=== PATIENT | male | born 1960 | race Caucasian/White ===

== ENCOUNTER 2019-07-11 16:53 | Observation (INO) ==
[2019-07-11] MEDS ORDERED: 0.9 % Sodium Chloride 1,000 ML IVC STA (17:07)
[2019-07-11] MEDS ORDERED: Ipratropium/Albuterol Neb 3 ML IH STA (17:07)
[2019-07-11] MEDS ORDERED: 0.9 % Sodium Chloride 1,000 ML IVC ONE (17:11)
[2019-07-11 17:32] LABS: Basophils % 0.2 %; Hematocrit 46.2 % (37.5-50.1); Hemoglobin 15.3 g/dL (12.9-16.9); Immature Granulocytes % 0.3 % (0-4); Lymphocytes # 0.8 K/mcL (0.6-4.6); Lymphocytes % 7.4 %; Mean Corpuscular HGB Conc 33.1 g/dL (31.6-35.5); Mean Corpuscular Volume 93.5 fL (83.0-100.0); Mean Platelet Volume 9.9 fL (9.4-12.4); Monocytes # 1.2 K/mcL (0.0-1.3); Monocytes % 11.4 %; Neutrophils # 8.3 K/mcL (1.6-8.9); Platelet Count 154 K/mcL (140-400); Red Blood Count 4.94 M/mcL (4.19-5.50); Segmented Neutrophils % 80.7 %; White Blood Count 10.3 K/mcL (4.3-11.1)
[2019-07-11 17:38] LABS: Bilirubin,Urine Small (Negative); Blood,Urine Small (Negative); Clarity,Urine Clear (Clear); Color,Urine Dark Yellow (Yellow); Glucose,Urine (UA) Normal (Normal); Ketones,Urine Negative (Negative); Leukocyte Esterase,Urine Negative (Negative); Nitrite,Urine Negative (Negative); Protein,Urine >=300 mg/dL (Neg-Trace); Specific Gravity,Urine 1.028 (1.010-1.025); Urobilinogen,Urine Normal (Normal)
[2019-07-11 17:51] LABS: Bacteria,Urine None Seen per hpf (None-Few); Hyaline Casts,Urine Moderate per lpf (None-Few); RBC,Urine 15-30 per hpf (0-3); Squamous Epithelial Cell,Urine Many per lpf (None-Few); WBC,Urine 0-3 per hpf (0-3)
[2019-07-11 17:58] LABS: BUN/Creatinine Ratio 16 (6-26); Blood Urea Nitrogen 20 mg/dL (6-20); Calcium 9.2 mg/dL (8.6-10.3); Carbon Dioxide 33 mEq/L (23-29); Chloride 92 mEq/L (98-107); Glucose 132 mg/dL (70-105); Osmolality,Calculated 284 (280-300); Potassium 3.9 mEq/L (3.5-5.1); Sodium 135 mEq/L (136-145); Troponin I 0.03 ng/mL (< 0.04); eGFR For African Americans > 60 (> 60); eGFR For Non-African Americans 57 (> 60)
[2019-07-11] MEDS ORDERED: predniSONE 20 MG TABLET PO ONE (18:58)
[2019-07-11] MEDS ORDERED: Albuterol 2.5 MG/3 ML NEBULIZER IH ONE (19:02)
[2019-07-11 21:26] LABS: Magnesium 2.1 mg/dL (1.6-2.6); Phosphorous 4.4 mg/dL (2.7-4.5)
[2019-07-11] MEDS ORDERED: Naloxone 0.4 MG/ML INJ IVP PRN (21:52)
[2019-07-11] MEDS ORDERED: Albuterol 2.5 MG/3 ML NEBULIZER IH PRN (21:52)
[2019-07-11] MEDS ORDERED: Azithromycin 500 MG in 0.9 % Sodium Chloride 250 ML IVPB SCH (22:00)
[2019-07-11] MEDS ORDERED: Lisinopril 20 MG TABLET PO SCH (22:00)
[2019-07-11 22:15] LABS: ABG Base Excess 4 mEq/L (-2 to 3); ABG HCO3 30 mEq/L (21-27); ABG Oxygen Saturation 92 % (95-98); ABG PCO2 49 mmHg (35-45); ABG PH 7.39 pH Units (7.32-7.45); ABG PO2 65 mmHg (85-104); ABG TCO2 32 mEq/L (20-26)
[2019-07-11] MEDS: Ipratropium/Albuterol Neb 3 ML IH SCH (22:54)
[2019-07-11] MEDS ORDERED: Isovue-370 500 ML BOTTLE IVP ONE (23:03)
[2019-07-11] MEDS: *HR* Heparin 5,000 UNIT/ML VIAL SQ SCH (23:10)
[2019-07-12 00:45] LABS: Adenovirus Not Detected (Not Detect); Coronavirus 229E Not Detected (Not Detect); Coronavirus HKU1 Not Detected (Not Detect); Coronavirus NL63 Not Detected (Not Detect); Coronavirus OC43 Not Detected (Not Detect); Human Metapneumovirus Not Detected (Not Detect); Human Rhinovirus/Enterovirus Not Detected (Not Detect); Influenza A Subtype 2009 H1 Not Detected (Not Detect)
[2019-07-12 00:47] LABS: Bordetella Pertussis Not Detected (Not Detect); Chlamydophila pneumoniae Not Detected (Not Detect); Influenza B DETECTED (Not Detect); Mycoplasma pneumoniae Not Detected (Not Detect); Parainfluenza Virus 1 Not Detected (Not Detect); Parainfluenza Virus 2 Not Detected (Not Detect); Parainfluenza Virus 3 Not Detected (Not Detect); Parainfluenza Virus 4 Not Detected (Not Detect); Respiratory Syncytial Virus Not Detected (Not Detect)
[2019-07-12] MEDS: Ipratropium/Albuterol Neb 3 ML IH SCH ×3 (04:29→16:12)
[2019-07-12 05:28] LABS: Basophils % 0.1 %; Hematocrit 38.6 % (37.5-50.1); Immature Granulocytes % 0.1 % (0-4); Lymphocytes # 0.6 K/mcL (0.6-4.6); Lymphocytes % 8.1 %; Mean Corpuscular HGB Conc 32.6 g/dL (31.6-35.5); Mean Corpuscular Hemoglobin 30.5 pg (28.0-33.3); Mean Corpuscular Volume 93.5 fL (83.0-100.0); Mean Platelet Volume 10.1 fL (9.4-12.4); Monocytes # 0.5 K/mcL (0.0-1.3); Monocytes % 7.2 %; Neutrophils # 6.3 K/mcL (1.6-8.9); Platelet Count 145 K/mcL (140-400); Red Blood Count 4.13 M/mcL (4.19-5.50); Red Cell Distribution Width 12.4 % (11.5-14.5); Segmented Neutrophils % 84.5 %; White Blood Count 7.4 K/mcL (4.3-11.1)
[2019-07-12 05:36] LABS: Hemoglobin 12.6 g/dL (12.9-16.9)
[2019-07-12 05:39] LABS: Alanine Aminotransferase 15 Units/L (7-52); Albumin 3.4 g/dL (3.5-5.7); Albumin/Globulin Ratio 1.5 (1.1-2.2); Alkaline Phosphatase 39 Units/L (34-104); Aspartate Amino Transferase 29 Units/L (13-39); BUN/Creatinine Ratio 25 (6-26); Bilirubin,Total 0.6 mg/dL (0.3-1.0); Blood Urea Nitrogen 29 mg/dL (6-20); Calcium 8.2 mg/dL (8.6-10.3); Carbon Dioxide 28 mEq/L (23-29); Chloride 98 mEq/L (98-107); Globulin 2.3 g/dL (2.4-3.5); Glucose 118 mg/dL (70-105); Osmolality,Calculated 287 (280-300); Sodium 135 mEq/L (136-145); Total Protein 5.7 g/dL (6.4-8.9); eGFR For African Americans > 60 (> 60); eGFR For Non-African Americans > 60 (> 60)
[2019-07-12] MEDS: *HR* Heparin 5,000 UNIT/ML VIAL SQ SCH ×2 (06:21→14:32)
[2019-07-12 06:24] LABS: Platelet Estimate Normal (Normal)
[2019-07-12] MEDS ORDERED: carvediloL 25 MG TABLET PO SCH (08:00)
[2019-07-12] MEDS ORDERED: Spironolactone 25 MG TABLET PO SCH (09:00)
[2019-07-12] MEDS ORDERED: Aspirin 81 MG TAB.CHEW PO SCH (09:00)
[2019-07-12] MEDS ORDERED: predniSONE 20 MG TABLET PO ONE (09:59)
[2019-07-12 10:24] LABS: Estimated Average Glucose 131 mg/dl
[2019-07-12 12:37] VITALS: BP 148/76
[2019-07-12] MEDS ORDERED: Loratadine 10 MG TABLET PO SCH (14:30)
== END 2019-07-12 18:35 | disposition home or self-care (01) ==
LOC: EMEROOARM 16:53 → 2ANU 16:53 → SUATTDRO 19:12 → 2ANU 20:02
PROVIDERS: ADMIT Family Medicine; ATTEND Internal Medicine

== ENCOUNTER 2019-07-12 22:37 | Observation (INO) ==
[2019-07-13] MEDS ORDERED: Ipratropium/Albuterol Neb 3 ML IH ONE (00:41)
[2019-07-13] MEDS ORDERED: methylPREDNISolone 125 MG/2 ML VIAL IVP ONE (01:06)
[2019-07-13] MEDS ORDERED: cefTRIAXone 1,000 MG in Water for inj. (sterile) 10 ML IVP ONE (01:13)
[2019-07-13 01:23] LABS: Basophils % 0.1 %; Hematocrit 38.7 % (37.5-50.1); Hemoglobin 12.9 g/dL (12.9-16.9); Immature Granulocytes % 0.1 % (0-4); Lymphocytes # 0.9 K/mcL (0.6-4.6); Lymphocytes % 8.9 %; Mean Corpuscular HGB Conc 33.3 g/dL (31.6-35.5); Mean Corpuscular Hemoglobin 30.9 pg (28.0-33.3); Mean Corpuscular Volume 92.8 fL (83.0-100.0); Mean Platelet Volume 9.8 fL (9.4-12.4); Monocytes # 1.3 K/mcL (0.0-1.3); Monocytes % 13.4 %; Neutrophils # 7.4 K/mcL (1.6-8.9); Platelet Count 164 K/mcL (140-400); Red Blood Count 4.17 M/mcL (4.19-5.50); Red Cell Distribution Width 12.1 % (11.5-14.5); Segmented Neutrophils % 77.5 %; White Blood Count 9.6 K/mcL (4.3-11.1)
[2019-07-13 01:34] LABS: BUN/Creatinine Ratio 24 (6-26); Blood Urea Nitrogen 22 mg/dL (6-20); Calcium 8.7 mg/dL (8.6-10.3); Carbon Dioxide 29 mEq/L (23-29); Chloride 101 mEq/L (98-107); Glucose 114 mg/dL (70-105); Osmolality,Calculated 290 (280-300); Sodium 138 mEq/L (136-145); Troponin I < 0.03 ng/mL (< 0.04); eGFR For African Americans > 60 (> 60); eGFR For Non-African Americans > 60 (> 60)
[2019-07-13] MEDS ORDERED: Acetaminophen 325 MG TABLET PO PRN (04:57)
[2019-07-13] MEDS ORDERED: Naloxone 0.4 MG/ML INJ IVP PRN (04:57)
[2019-07-13] MEDS ORDERED: Ipratropium/Albuterol Neb 3 ML IH PRN (05:01)
[2019-07-13] MEDS: *HR* Heparin 5,000 UNIT/ML VIAL SQ SCH ×3 (06:19→22:26)
[2019-07-13] MEDS ORDERED: Benzonatate 100 MG CAPSULE PO PRN (06:25)
[2019-07-13] MEDS: Ipratropium/Albuterol Neb 3 ML IH SCH ×5 (07:52→23:38)
[2019-07-13] MEDS: predniSONE 20 MG TABLET PO SCH (08:42)
[2019-07-13] MEDS: carvediloL 25 MG TABLET PO SCH ×2 (08:42→16:37)
[2019-07-13] MEDS: Azithromycin 250 MG TABLET PO SCH (08:42)
[2019-07-13] MEDS: Lisinopril 20 MG TABLET PO SCH ×2 (08:42→22:25)
[2019-07-14] MEDS: Ipratropium/Albuterol Neb 3 ML IH SCH ×3 (04:06→11:11)
[2019-07-14] MEDS: *HR* Heparin 5,000 UNIT/ML VIAL SQ SCH (06:14)
[2019-07-14] MEDS: Lisinopril 20 MG TABLET PO SCH (08:28)
[2019-07-14] MEDS: Azithromycin 250 MG TABLET PO SCH (08:28)
[2019-07-14] MEDS: predniSONE 20 MG TABLET PO SCH (08:28)
[2019-07-14] MEDS: carvediloL 25 MG TABLET PO SCH (08:28)
[2019-07-14 10:32] VITALS: BP 111/62
== END 2019-07-14 13:03 | disposition home or self-care (01) ==
LOC: CDU 22:37 → EMEROOARM 22:37 → CDU 07-13 02:59 → SUATTDRO 07-13 04:32 → CDU 07-13 04:47 → 2ANU 07-13 17:03
PROVIDERS: ADMIT Internal Medicine; ATTEND Internal Medicine

== ENCOUNTER 2021-11-06 18:11 | Inpatient (IN) ==
[2021-11-06] MEDS ORDERED: *HR* Labetalol 20 MG/4 ML SYRINGE IVP ONE ×2 (18:46→21:23)
[2021-11-06] MEDS: Nitroglycerin 0.4 MG TAB.SUBL SL SCH ×3 (19:13→23:16)
[2021-11-06 19:15] LABS: Basophils % 0.1 %; Eosinophils % 0.1 %; Hematocrit 46.7 % (37.5-50.1); Hemoglobin 15.6 g/dL (12.9-16.9); Immature Granulocytes % 0.3 % (0-4); Lymphocytes # 0.9 K/mcL (0.6-4.6); Lymphocytes % 6.2 %; Mean Corpuscular HGB Conc 33.4 g/dL (31.6-35.5); Mean Corpuscular Hemoglobin 30.7 pg (28.0-33.3); Mean Corpuscular Volume 91.9 fL (83.0-100.0); Mean Platelet Volume 9.5 fL (9.4-12.4); Monocytes # 1.4 K/mcL (0.0-1.3); Monocytes % 9.7 %; Neutrophils # 12.1 K/mcL (1.6-8.9); Platelet Count 274 K/mcL (140-400); Red Blood Count 5.08 M/mcL (4.19-5.50); Red Cell Distribution Width 11.3 % (11.5-14.5); Segmented Neutrophils % 83.6 %; White Blood Count 14.5 K/mcL (4.3-11.1)
[2021-11-06 19:55] LABS: Alanine Aminotransferase 10 Units/L (7-52); Albumin 4.5 g/dL (3.5-5.7); Albumin/Globulin Ratio 1.6 (1.1-2.2); Alkaline Phosphatase 77 Units/L (34-104); Aspartate Amino Transferase 18 Units/L (13-39); BUN/Creatinine Ratio 11 (6-26); Blood Urea Nitrogen 11 mg/dL (8-23); Calcium 9.3 mg/dL (8.6-10.3); Carbon Dioxide 30 mEq/L (23-29); Chloride 94 mEq/L (98-107); Globulin 2.9 g/dL (2.4-3.5); Glucose 147 mg/dL (70-105); Magnesium 1.8 mg/dL (1.6-2.6); Osmolality,Calculated 286 (280-300); Sodium 137 mEq/L (136-145); Total Protein 7.4 g/dL (6.4-8.9); Troponin I 0.05 ng/mL (< 0.04); eGFR For African Americans > 60 (> 60); eGFR For Non-African Americans > 60 (> 60)
[2021-11-06 20:09] LABS: Bilirubin,Urine Negative (Negative); Blood,Urine Trace (Negative); Clarity,Urine Clear (Clear); Color,Urine Yellow (Yellow); Glucose,Urine (UA) Normal (Normal); Hyaline Casts,Urine Few per lpf (None Seen); Leukocyte Esterase,Urine Negative (Negative); Mucus,Urine Few per lpf (None-Few); Nitrite,Urine Negative (Negative); PH,Urine 6.5 pH Units (5.0-8.0); RBC,Urine 0-3 per hpf (0-3); WBC,Urine 0-3 per hpf (0-3)
[2021-11-06] MEDS ORDERED: *HR* OxyCODONE Immed Rel 5 MG TABLET PO PRN (20:32)
[2021-11-06] MEDS ORDERED: *HR* HYDROcodone/Acet 5/325 mg TABLET PO PRN (20:32)
[2021-11-06] MEDS ORDERED: Ondansetron ODT 4 MG TAB.RAPDIS SL PRN (20:32)
[2021-11-06] MEDS ORDERED: Melatonin 3 MG TABLET PO PRN (20:32)
[2021-11-06] MEDS ORDERED: Naloxone 0.4 MG/ML INJ IVP PRN (20:32)
[2021-11-06] MEDS ORDERED: Acetaminophen 325 MG TABLET PO PRN (20:32)
[2021-11-06] MEDS ORDERED: Perflutren Lipid Microsphere 1.3 ML in 0.9 % Sodium Chloride 8.7 ML IVP PRN (20:34)
[2021-11-06] MEDS ORDERED: Nitroglycerin 0.4 MG TAB.SUBL SL PRN (20:35)
[2021-11-06 20:52] LABS: Ketones,Urine 40 mg/dL (Negative); Protein,Urine 200 mg/dL (Neg-Trace)
[2021-11-06 22:35] LABS: Adenovirus Not Detected (Not Detect); Bordetella Pertussis Not Detected (Not Detect); Chlamydophila pneumoniae Not Detected (Not Detect); Coronavirus 229E Not Detected (Not Detect); Coronavirus HKU1 Not Detected (Not Detect); Coronavirus NL63 Not Detected (Not Detect); Coronavirus OC43 Not Detected (Not Detect); Human Metapneumovirus Not Detected (Not Detect); Human Rhinovirus/Enterovirus DETECTED (Not Detect); Influenza A Subtype 2009 H1 Not Detected (Not Detect); Influenza B Not Detected (Not Detect); Mycoplasma pneumoniae Not Detected (Not Detect); Parainfluenza Virus 1 Not Detected (Not Detect); Parainfluenza Virus 2 Not Detected (Not Detect); Parainfluenza Virus 3 Not Detected (Not Detect); Parainfluenza Virus 4 Not Detected (Not Detect); Respiratory Syncytial Virus Not Detected (Not Detect); SARS-CoV-2 Not Detected (Not Detect)
[2021-11-06] MEDS: niCARdipine 20 MG/200 ML MLS IVC SCH (22:55)
[2021-11-07] MEDS ORDERED: *HR* LORazepam 2 MG/ML VIAL IVP ONE (01:19)
[2021-11-07] MEDS: niCARdipine 20 MG/200 ML MLS IVC SCH (02:26)
[2021-11-07 02:39] LABS: Hematocrit 45.2 % (37.5-50.1); Hemoglobin 14.9 g/dL (12.9-16.9); Mean Corpuscular Hemoglobin 30.7 pg (28.0-33.3); Mean Platelet Volume 10.1 fL (9.4-12.4); Platelet Count 249 K/mcL (140-400); Red Blood Count 4.86 M/mcL (4.19-5.50); Red Cell Distribution Width 11.4 % (11.5-14.5); White Blood Count 16.8 K/mcL (4.3-11.1)
[2021-11-07] MEDS ORDERED: *HR* LORazepam 2 MG/ML VIAL IVP PRN ×2 (02:41→05:52)
[2021-11-07 02:51] LABS: BUN/Creatinine Ratio 13 (6-26); Blood Urea Nitrogen 13 mg/dL (8-23); Carbon Dioxide 30 mEq/L (23-29); Chloride 95 mEq/L (98-107); Chol/HDL Ratio 2.2 (0-4.9); Cholesterol 129 mg/dL (< 200); Glucose 152 mg/dL (70-105); HDL Cholesterol 60 mg/dL (40-59); LDL Cholesterol,Calculated 56 mg/dL (< 100); Magnesium 1.7 mg/dL (1.6-2.6); Osmolality,Calculated 281 (280-300); Phosphorous 3.1 mg/dL (2.7-4.5); Potassium 4.1 mEq/L (3.5-5.1); Sodium 134 mEq/L (136-145); Triglycerides 66 mg/dL (< 150); eGFR For African Americans > 60 (> 60); eGFR For Non-African Americans > 60 (> 60)
[2021-11-07] MEDS ORDERED: Isovue-370 500 ML BOTTLE IVP ONE (02:58)
[2021-11-07 03:03] LABS: Thyroid Stimulating Hormone 0.196 mcIU/mL (0.340-5.600)
[2021-11-07 03:05] LABS: Estimated Average Glucose 126 mg/dl
[2021-11-07] MEDS: Levalbuterol Neb 1.25 MG/3 ML IH PRN ×2 (03:32→15:21)
[2021-11-07] MEDS: GuaiFENesin Liq 200 MG/10 ML UDC PO PRN ×2 (04:05→09:56)
[2021-11-07] MEDS: Vitamin B Complex/Vit C/Vit E 1 EACH TABLET PO SCH (09:51)
[2021-11-07] MEDS: Aspirin 81 MG TAB.CHEW PO SCH (09:51)
[2021-11-07] MEDS: Thiamine (B-1) 100 MG TABLET PO SCH (09:51)
[2021-11-07] MEDS: Metoprolol XL (24 HR) Succ 25 MG TAB.ER.24H PO SCH (09:51)
[2021-11-07] MEDS: Folic Acid 1 MG TABLET PO SCH (09:51)
[2021-11-07] MEDS: lisinopriL 20 MG TABLET PO SCH (09:52)
[2021-11-07] MEDS ORDERED: MethylPREDNISolone 40 MG/ML VIAL IVP ONE (11:42)
[2021-11-07] MEDS: Spironolactone 25 MG TABLET PO SCH (19:06)
[2021-11-08] MEDS ORDERED: *HR* Enoxaparin 40 MG/0.4 ML SYRINGE SQ SCH (06:00)
[2021-11-08 06:55] VITALS: BP 166/99; PULSE 111; TEMP 97.4; O2SAT 98
[2021-11-08] MEDS: Spironolactone 25 MG TABLET PO SCH (08:39)
[2021-11-08] MEDS: lisinopriL 20 MG TABLET PO SCH (08:39)
[2021-11-08] MEDS: Metoprolol XL (24 HR) Succ 25 MG TAB.ER.24H PO SCH (08:39)
[2021-11-08] MEDS: Folic Acid 1 MG TABLET PO SCH (08:39)
[2021-11-08] MEDS: Thiamine (B-1) 100 MG TABLET PO SCH (08:40)
[2021-11-08] MEDS: Aspirin 81 MG TAB.CHEW PO SCH (08:40)
[2021-11-08] MEDS: Vitamin B Complex/Vit C/Vit E 1 EACH TABLET PO SCH (08:40)
[2021-11-08] MEDS ORDERED: predniSONE 20 MG TABLET PO SCH (09:00)
== END 2021-11-08 11:52 | disposition home or self-care (01) | DRG 871 ==
LOC: 3NENU 18:11 → EMEROOARM 18:11 → SUATTDRO 22:37 → 3NENU 23:30 → 2NENU 11-07 06:51
PROVIDERS: ADMIT Family Medicine; ATTEND Internal Medicine

== ENCOUNTER 2022-03-15 19:43 | Observation (INO) ==
[2022-03-15] MEDS ORDERED: Iopamidol - 370 500 ML MLS IVP ONE (21:10)
[2022-03-15 21:52] LABS: Basophils % 0.2 %; Eosinophils % 0.1 %; Hematocrit 45.5 % (37.5-50.1); Hemoglobin 15.3 g/dL (12.9-16.9); Immature Granulocytes % 0.3 % (0-4); Lymphocytes % 5.7 %; Mean Corpuscular HGB Conc 33.6 g/dL (31.6-35.5); Mean Corpuscular Hemoglobin 30.5 pg (28.0-33.3); Mean Corpuscular Volume 90.8 fL (83.0-100.0); Mean Platelet Volume 9.1 fL (9.4-12.4); Monocytes # 1.4 K/mcL (0.0-1.3); Monocytes % 8.5 %; Neutrophils # 14.2 K/mcL (1.6-8.9); Platelet Count 222 K/mcL (140-400); Red Blood Count 5.01 M/mcL (4.19-5.50); Red Cell Distribution Width 11.9 % (11.5-14.5); Segmented Neutrophils % 85.2 %; White Blood Count 16.7 K/mcL (4.3-11.1)
[2022-03-15 22:13] LABS: BUN/Creatinine Ratio 8 (6-26); Blood Urea Nitrogen 10 mg/dL (8-23); Calcium 9.3 mg/dL (8.6-10.3); Carbon Dioxide 28 mEq/L (23-29); Chloride 98 mEq/L (98-107); Glucose 105 mg/dL (70-105); Magnesium 1.6 mg/dL (1.6-2.6); Osmolality,Calculated 281 (280-300); Potassium 3.8 mEq/L (3.5-5.1); Sodium 136 mEq/L (136-145); Troponin I < 0.03 ng/mL (< 0.04)
[2022-03-15 22:48] LABS: Influenza A PCR Negative (Negative); Influenza B PCR Negative (Negative); Resp. Syncytial Virus PCR Negative (Negative)
[2022-03-15 22:51] LABS: SARS-CoV-2 by PCR (In House) Negative (Negative)
[2022-03-15] MEDS ORDERED: cefTRIAXone 1,000 MG in Water for inj. (sterile) 10 ML IVP ONE (23:53)
[2022-03-16] MEDS ORDERED: Naloxone 0.4 MG/ML INJ IVP PRN (00:06)
[2022-03-16] MEDS ORDERED: Melatonin 3 MG TABLET PO PRN (00:06)
[2022-03-16] MEDS ORDERED: *HR* Promethazine 25 MG/ML VIAL IM PRN (00:06)
[2022-03-16] MEDS ORDERED: Ondansetron 4 MG/2 ML VIAL IVP PRN (00:06)
[2022-03-16] MEDS ORDERED: Acetaminophen 325 MG TABLET PO PRN (00:06)
[2022-03-16] MEDS ORDERED: Ipratropium/Albuterol Neb 3 ML IH PRN (00:14)
[2022-03-16] MEDS ORDERED: *HR* Labetalol 20 MG/4 ML SYRINGE IVP PRN (00:14)
[2022-03-16] MEDS ORDERED: MethylPREDNISolone 40 MG/ML VIAL IVP ONE (02:27)
[2022-03-16 02:35] VITALS: O2SAT 93
[2022-03-16 02:36] LABS: Basophils # 0.1 K/mcL (0.0-0.2); Basophils % 0.3 %; Eosinophils % 0.1 %; Hematocrit 46.2 % (37.5-50.1); Hemoglobin 15.7 g/dL (12.9-16.9); Immature Granulocytes % 0.5 % (0-4); Lymphocytes # 1.2 K/mcL (0.6-4.6); Lymphocytes % 6.2 %; Mean Corpuscular Hemoglobin 30.6 pg (28.0-33.3); Mean Corpuscular Volume 90.1 fL (83.0-100.0); Mean Platelet Volume 9.1 fL (9.4-12.4); Monocytes # 1.7 K/mcL (0.0-1.3); Monocytes % 8.7 %; Platelet Count 227 K/mcL (140-400); Red Blood Count 5.13 M/mcL (4.19-5.50); Red Cell Distribution Width 11.9 % (11.5-14.5); Segmented Neutrophils % 84.2 %
[2022-03-16 02:46] LABS: INR 1.1; Prothrombin Time 12.8 Seconds (9.4-12.1)
[2022-03-16 02:58] LABS: Calcium 9.6 mg/dL (8.6-10.3); Chol/HDL Ratio 2.8 (0-4.9); Magnesium 1.8 mg/dL (1.6-2.6); Phosphorous 3.9 mg/dL (2.7-4.5); Potassium 3.9 mEq/L (3.5-5.1)
[2022-03-16] MEDS ORDERED: Doxycycline 100 MG CAPSULE PO SCH (09:00)
[2022-03-16] MEDS ORDERED: lisinopriL 20 MG TABLET PO SCH (09:00)
[2022-03-16] MEDS ORDERED: Aspirin Enteric Coated 81 MG Tablet PO SCH (09:00)
[2022-03-16] MEDS ORDERED: predniSONE 20 MG TABLET PO SCH (09:00)
[2022-03-16] MEDS ORDERED: Metoprolol XL (24 HR) Succ 50 MG TAB.ER.24H PO SCH (09:00)
[2022-03-16] MEDS ORDERED: Budesonide/Formoterol 160/4.5 1 PUFF INH IH SCH (10:00)
[2022-03-16 12:13] VITALS: BP 134/87; PULSE 96; TEMP 97.9
[2022-03-17] MEDS ORDERED: cefTRIAXone 1,000 MG in 0.9 % Sodium Chloride 10 ML IVP SCH
== END 2022-03-16 15:00 | disposition home or self-care (01) ==
LOC: 2ANU 19:43 → EMEROOARM 19:43 → SUATTDRO 03-16 00:23 → 2ANU 03-16 01:53
PROVIDERS: ADMIT Internal Medicine; ATTEND Student in an Organized Health Care Education/Training Program